=== PATIENT | male | born 1970 | race Caucasian/White ===

== ENCOUNTER 2020-01-16 04:33 | Emergency (ER) | payer SELFPAY ==
[~2020-01-16] VITALS: Ht 182.9 cm; Wt 92.5 kg
[2020-01-16 04:39] VITALS: BP 132/85
--- NOTE | 2020-01-16 04:46 | NUR ---
PT AMBULATED TO BED #7
--- NOTE | 2020-01-16 04:55 | NUR ---
PT BIB SPOUSE C/O LLQ ABD "BURNING" PAIN 10/10 ONSET 2 HOURS AGO RADIATING TO INGUINAL REGION WELL AROUND TO THE BACK. C/O HESITANCY AND PAIN WITH URINATION; STATES IT IS YELLOW IN COLOR. PT PACING IN ROOM HOLDING STOMACH WHILE ANSWERING QUESTIONS. C/O INTERMITTENT N/V; LAST VOMITUS 15 MIN AGO. STATED HE TOOK IBUPROFEN FOR THE PAIN 2 HOURS AGO. DENIES PMH OTHER THAN HX OF KIDNEY STONES WITH HOSPITALIZATION A FEW YEARS AGO AND A SURGERY IN THE "PRIVATE REGION." PT LOOKS DIAPHORETIC AND YELLOWISH/PALE SKIN. ABD IS TENDER BUT NOT WORSE WITH PALPATION NOR REBOUND TENDERNESS. ABD IS SWOLLEN IN LLQ. PT SAYS THIS TYPE OF EPISODE HAS BEEN HAPPENING INTERMITTENTLY OVER THE LAST FOUR MONTHS WITH SIMILAR INTENSITY OF PAIN. DENIES CP, SOB, CHANGE IN APPETITE. LAST URINATION 15 MIN AGO SMALL AMOUNT, LAST BM YESTERDAY; NO CHANGES TO BM. RR TACHY BUT O2 100% ON RA AND RATE AND DEPTH REGULAR. PT GIVEN URINAL AND SPECIMEN CUP AND INSTRUCTED TO USE WHEN THERE'S AN URGE TO URINATE. PLACED ON BP CUFF AND CONT PULSE OX. VSS. RESTING WITH EYES CLOSED IN SEATED UPRIGHT IN [facility].
--- NOTE | 2020-01-16 05:20 | NUR ---
DR VU IN ROOM WITH PT.
[2020-01-16] MEDS ORDERED: KETOROLAC 30 MG/ML VIAL IVP ONE (05:25)
[2020-01-16] MEDS ORDERED: NACL 0.9% 1,000 ML IV SCH (05:25)
--- NOTE | 2020-01-16 06:00 | NUR ---
PT CONTINUES TO C/O PAIN AND IS GRIMACING AND HOLDING ABDOMEN. RN STARTED IV, PETRONA BLOOD, GAVE TORADOL AND STARTING NS BOLUS. RN FINISHED HANGING BOLUS; CT CAME TO TAKE PT. WILL REASSESS MEDICATION EFFECTS WHEN PT RETURNS. PT WAS ABLE TO PROVIDE URINE SPECIMEN; SENT TO LAB.
[2020-01-16 07:12] LABS: BASOPHILS # (AUTO) 0.1 K/uL (0.00-0.22); BASOPHILS % (AUTO) 0.7 % (0.0-2.0); HEMATOCRIT 44.5 % (36-52); HEMOGLOBIN 15.3 g/dL (12.0-18.0); LYMPHOCYTES # (AUTO) 0.6 K/uL (2.0-11.5); LYMPHOCYTES % (AUTO) 5.6 % (20.5-51.1); MEAN CORPUSCULAR HEMOGLOBIN 29 pg (27-31); MEAN CORPUSCULAR HGB CONC 34 g/dL (33-37); MEAN CORPUSCULAR VOLUME 83.7 fL (80-94); MONOCYTES # (AUTO) 0.4 K/uL (0.8-1.0); NEUTROPHILS # (AUTO) 9.7 K/uL (1.8-7.7); NEUTROPHILS % (AUTO) 89.7 % (42.2-75.2); PLATELET COUNT (AUTO) 209 K/uL (140-450); RED BLOOD CELL COUNT(AUTO) 5.31 MIL/uL (4.20-6.10); RED CELL DISTRIBUTION WIDTH 13.4 % (11.6-13.7); WHITE BLOOD COUNT (AUTO) 10.9 K/uL (4.8-10.8)
[2020-01-16 07:27] LABS: ALBUMIN 3.8 g/dL (3.4-5.0); ANION GAP 11.7 (8-16); CARBON DIOXIDE 27.9 mmol/L (21-32); CREATININE 1.4 mg/dL (0.6-1.3); POTASSIUM 3.6 mmol/L (3.5-5.1); TOTAL BILIRUBIN 0.5 mg/dL (0.0-1.0)
--- NOTE | 2020-01-16 07:29 | NUR ---
Dr. Tejeda is evaluating the patient at bedside.
--- NOTE | 2020-01-16 07:29 | NUR ---
REPORT GIVEN TO YAIMA LOPEZ
[2020-01-16 07:33] LABS: APPEARANCE,URINE HAZY (CLEAR); BILIRUBIN,URINE 1+ (NEGATIVE); BLOOD, URINE TRACE-I (NEGATIVE); COLOR,URINE YELLOW (YELLOW); LEUKOCYTE ESTERASE ,URINE NEGATIVE (NEGATIVE); NITRITE, URINE NEGATIVE (NEGATIVE); PH,URINE 5.5 (5.0-9.0); UGLUCOSE NEGATIVE (NEGATIVE)
[2020-01-16] MEDS ORDERED: NACL 0.9% 1,000 ML IV ONE (07:35)
[2020-01-16] MEDS ORDERED: MORPHINE SULFATE 4 MG/ML SYR IVP ONE ×2 (07:35→08:00)
[2020-01-16 07:36] LABS: RBC,URINE 0-5 /HPF (0-5); WBC,URINE 0-5 /HPF (0-5)
[2020-01-16 07:37] LABS: URINE AMORPHOUS URATE 1+ /HPF (None Seen)
--- NOTE | 2020-01-16 07:47 | NUR ---
PT REFUSED MORPHINE. ERMD MADE AWARE.
--- NOTE | 2020-01-16 08:21 | NUR ---
PT STATES DECREASE IN PAIN. AFTER MEDICATION. 05/09 TOLERABLE. R/R EVEN AND UNLABORED VSS, WILL CONTINUE TO MONITOR.
[2020-01-16 09:00] VITALS: BP 147/75
--- NOTE | 2020-01-16 11:27 | NUR ---
Late entry. Confirmed with RN that 0.9 NS IV completed at 0700
== END 2020-01-16 08:50 | disposition home or self-care (01) ==
LOC: MED 04:33
DX: N20.1 Calculus of ureter (principal); R11.2 Nausea with vomiting, unspecified; Z87.442 Personal history of urinary calculi
CPT/HCPCS: 36415; 74176; 80053; 81001; 85025; 96361; 96374; 96375; 99284; J1885; J2270; J7030